=== PATIENT | female | born 1965 | race African-American/Black ===

== ENCOUNTER 2019-02-15 14:07 | Inpatient (IN) | payer MEDICAID ==
[~2019-02-15] VITALS: Ht 175.3 cm; Wt 103.4 kg
[2019-02-15] MEDS ORDERED: MORPHINE SULFATE 4 MG/ML CPJ (NOT FOR IM USE) IV STA (14:38)
[2019-02-15] MEDS ORDERED: SODIUM CHLORIDE 0.9% 1,000 ML IV ONE ×2 (14:38→20:25)
[2019-02-15] MEDS ORDERED: METHYLPREDNISOLONE SOD SUCC 125 MG/2 ML VIAL IV STA (14:38)
[2019-02-15] MEDS ORDERED: ONDANSETRON HCL 4MG/2ML INJ IV STA (14:38)
[2019-02-15] MEDS ORDERED: LEVOFLOXACIN 500MG PREMIX 100 ML IV ONE (14:45)
[2019-02-15] MEDS ORDERED: IPRATROPIUM/ALBUTEROL 0.5-3(2.5)MG/3ML NEB HHN ONE (14:45)
[2019-02-15 15:04] LABS: BG BASE EXCESS -3.1 mmol/L (-2.0-2.0); BG CARBOXYHEMOGLOBIN 1.4 % (0.5-1.5); BG DEOXYHEMOGLOBIN 6.1 % (0.0-5.0); BG HCO3 ACT 20.4 mmol/L (22.0-26.0); BG METHEMOGLOBIN 0.3 % (0.0-1.5); BG OXYGEN SATURATION 93.8 % (92.0-98.5); BG OXYHEMOGLOBIN 92.2 % (94.0-97.0); BG PCO2 31.5 mmHg (35.0-45.0); BG PH 7.429 (7.350-7.450); BG PO2 68.9 mmHg (75.0-100.0); BG SAMPLE SITE RIGHT RADIAL; BG TOTAL HEMOGLOBIN 12.2 g/dL (12.0-18.0); BG VENT MODE ROOM AIR
[2019-02-15 15:16] LABS: BASOPHILS % 0.1 % (0.0-2.0); EOSINOPHILS % 0.6 % (0.0-5.0); HEMATOCRIT. 37.2 % (36.0-48.0); HEMOGLOBIN. 12.3 g/dL (12.0-16.0); LYMPHOCYTES % 9.9 % (20.0-50.0); MEAN CORPUSCULAR HEMOGLOBIN 33.9 pg (28.0-32.0); MEAN PLATELET VOLUME 9.2 fl (7.4-10.4); NEUTROPHILS % 86.4 % (40.0-76.0); PLATELET 230 x1000/uL (130-400); RED BLOOD CELL COUNT 3.61 mill/uL (4.2-5.4); RED CELL DISTRIBUTION WIDTH 13.5 % (11.6-14.6)
[2019-02-15 15:20] LABS: CHLORIDE 105 mEq/L (98-107)
[2019-02-15 15:21] LABS: PARTIAL THROMBOPLASTIN TIME 36.6 sec (23.4-31.0); PROTHROMBIN TIME 9.9 sec (9.6-11.0)
[2019-02-15 15:22] LABS: CLARITY URINE CLEAR (CLEAR); COLOR URINE YELLOW (YELLOW); KETONES URINE NEGATIVE (NEGATIVE); LEUKOCYTE ESTERASE URINE NEGATIVE (NEGATIVE); NITRITE URINE NEGATIVE (NEGATIVE); OCCULT BLOOD URINE 1+ (NEGATIVE); PH URINE 5.5 (4.5-8.0); PROTEIN URINE 1+ (NEGATIVE); SPECIFIC GRAVITY URINE 1.025 (1.005-1.030); UROBILINOGEN URINE 0.2 E.U./dL (0.2-1.0)
[2019-02-15 15:24] LABS: ETHANOL BLOOD < 10 mg/dL
[2019-02-15 15:33] LABS: *BARBITURATES SCREEN URINE NEGATIVE (NEGATIVE); *BENZODIAZEPINES SCREEN URINE NEGATIVE (NEGATIVE); *COCAINE SCREEN URINE PRESUMTIVE POSITIVE (NEGATIVE)
[2019-02-15 15:34] LABS: CANNABINOID URINE SCREEN PRESUMTIVE POSITIVE (NEGATIVE); METHADONE URINE SCREEN NEGATIVE (NEGATIVE); OPIATES URINE SCREEN NEGATIVE (NEGATIVE); PHENCYCLIDINE URINE SCREEN NEGATIVE (NEGATIVE)
[2019-02-15 15:35] LABS: *AMPHETAMINES SCREEN URINE NEGATIVE (NEGATIVE)
[2019-02-15] MEDS ORDERED: ONDANSETRON HCL 4MG/2ML INJ IV ONE (17:30)
[2019-02-15] MEDS ORDERED: MORPHINE SULFATE 4 MG/ML CPJ (NOT FOR IM USE) IV ONE (17:30)
[2019-02-15] MEDS ORDERED: KETOROLAC 30MG/ML VIAL IV ONE (17:30)
[2019-02-16] MEDS ORDERED: KETOROLAC 15MG/ML VIAL IV NR (05:00)
[2019-02-16] MEDS ORDERED: GUAIFENESIN-DM 200MG-20MG/10ML UDC PO PRN (07:45)
[2019-02-16] MEDS ORDERED: IPRATROPIUM/ALBUTEROL 0.5-3(2.5)MG/3ML NEB HHN PRN (07:45)
[2019-02-16] MEDS ORDERED: ONDANSETRON HCL 4MG/2ML INJ IV PRN (07:45)
[2019-02-16 08:59] LABS: HEMATOCRIT. 34.4 % (36.0-48.0); HEMOGLOBIN. 11.2 g/dL (12.0-16.0); LYMPHOCYTES % 8.5 % (20.0-50.0); MEAN CORPUSCULAR HEMOGLOBIN 33.8 pg (28.0-32.0); MEAN CORPUSCULAR VOLUME 103.8 fL (81.0-99.0); MEAN PLATELET VOLUME 9.4 fl (7.4-10.4); MONOCYTES % 3.9 % (2.0-8.0); NEUTROPHILS % 87.6 % (40.0-76.0); PLATELET 212 x1000/uL (130-400); RED BLOOD CELL COUNT 3.31 mill/uL (4.2-5.4); RED CELL DISTRIBUTION WIDTH 13.5 % (11.6-14.6)
[2019-02-16 09:01] LABS: CHLORIDE 112 mEq/L (98-107)
[2019-02-16] MEDS ORDERED: VANCOMYCIN 1 G PREMIX 200 ML IV ONE (10:00)
[2019-02-16] MEDS ORDERED: PIPERACILLIN/TAZ 3.375G PREMIX 50 ML IV ONE (10:00)
[2019-02-16] MEDS ORDERED: METHYLPREDNISOLONE SOD SUCC 40 MG/ML VIAL IV SCH (10:00)
[2019-02-16 12:00] VITALS: BP 102/57
[2019-02-16 12:55] VITALS: BP 127/68
[2019-02-16] MEDS ORDERED: LEVOFLOXACIN 500MG PREMIX 100 ML IV SCH (15:00)
[2019-02-16 16:00] VITALS: BP 103/59
[2019-02-16] MEDS ORDERED: ATRIPLA (16:09)
[2019-02-16] MEDS ORDERED: ATRIPLA PO (16:15)
[2019-02-16] MEDS ORDERED: NON FORMULARY PATIENT HOME MED XX SCH (16:30)
[2019-02-16] MEDS: PIPERACILLIN/TAZ 3.375G PREMIX 50 ML IV SCH (17:03)
[2019-02-16] MEDS: ACETAMINOPHEN 325MG TABLET PO PRN (17:32)
[2019-02-16 17:37] LABS: HEPATITIS B SURFACE ANTIGEN NEGATIVE
[2019-02-16 18:07] LABS: HEPATITIS A AB IGM NEGATIVE (NEGATIVE)
[2019-02-16] MEDS: LINEZOLID 600 MG PREMIX 300 ML IV SCH (18:45)
[2019-02-16 20:00] VITALS: BP 126/75
[2019-02-16] MEDS: GUAIFENESIN 600MG ER TABLET PO SCH (21:00)
[2019-02-16] MEDS ORDERED: VANCOMYCIN 1250MG in DEXTROSE 5% WATER 250ML IV SCH (21:00)
[2019-02-16] MEDS: HYDROCODONE/ACETAMINOPHEN 5/325MG TABLET PO PRN (21:16)
[2019-02-16] MEDS: IPRATROPIUM/ALBUTEROL 0.5-3(2.5)MG/3ML NEB HHN SCH (21:42)
[2019-02-17] VITALS: BP 119/62
[2019-02-17] MEDS: PIPERACILLIN/TAZ 3.375G PREMIX 50 ML IV SCH ×3 (00:14→13:03)
[2019-02-17] MEDS: IPRATROPIUM/ALBUTEROL 0.5-3(2.5)MG/3ML NEB HHN SCH ×4 (00:48→20:40)
[2019-02-17 04:00] VITALS: BP 96/62
[2019-02-17] MEDS: HYDROCODONE/ACETAMINOPHEN 5/325MG TABLET PO PRN ×3 (04:24→17:20)
[2019-02-17] MEDS: LINEZOLID 600 MG PREMIX 300 ML IV SCH (05:26)
[2019-02-17 06:27] LABS: CHLORIDE 114 mEq/L (98-107)
[2019-02-17 06:28] LABS: BASOPHILS % 0.3 % (0.0-2.0); EOSINOPHILS % 2.4 % (0.0-5.0); HEMATOCRIT. 31.1 % (36.0-48.0); HEMOGLOBIN. 10.3 g/dL (12.0-16.0); LYMPHOCYTES % 27.8 % (20.0-50.0); MEAN CORPUSCULAR HEMOGLOBIN 34.1 pg (28.0-32.0); MEAN CORPUSCULAR VOLUME 102.5 fL (81.0-99.0); MEAN PLATELET VOLUME 9.4 fl (7.4-10.4); MONOCYTES % 6.7 % (2.0-8.0); NEUTROPHILS % 62.8 % (40.0-76.0); PLATELET 197 x1000/uL (130-400); RED BLOOD CELL COUNT 3.03 mill/uL (4.2-5.4); RED CELL DISTRIBUTION WIDTH 13.5 % (11.6-14.6)
[2019-02-17] MEDS: GUAIFENESIN 600MG ER TABLET PO SCH ×2 (08:47→21:08)
[2019-02-17 08:56] VITALS: BP 100/50
[2019-02-17 09:07] LABS: ABSOLUTE LYMPHOCYTES 1.6 x10E3/uL (0.7-3.1); ABSOLUTE MONOCYTES 0.7 x10E3/uL (0.1-0.9); ABSOLUTE NEUTROPHILS 15.3 x10E3/uL (1.4-7.0); BASOPHILS 0 % (Not Estab.); HEMATOCRIT 33.9 % (34.0-46.6); HEMOGLOBIN 11.1 g/dL (11.1-15.9); IMMATURE GRANULOCYTES 0 % (Not Estab.); LYMPHOCYTES 9 % (Not Estab.); MEAN CORPUSCULAR HEMOGLOBIN 33.2 pg (26.6-33.0); MEAN CORPUSCULAR HGB CONC. 32.7 g/dL (31.5-35.7); MEAN CORPUSCULAR VOLUME 102 fL (79-97); MONOCYTES 4 % (Not Estab.); NEUTROPHILS 87 % (Not Estab.); PLATELETS 246 x10E3/uL (150-450); RBC 3.34 x10E6/uL (3.77-5.28); RED CELL DISTRIBUTION WIDTH 13.7 % (12.3-15.4); WBC 17.6 x10E3/uL (3.4-10.8)
[2019-02-17 11:42] VITALS: BP 103/48
[2019-02-17 13:15] LABS: % CD 3 POS. LYMPHOCYTES 78.5 % (57.5-86.2); % CD 4 POS. LYMPHOCYTES 35.4 % (30.8-58.5); % CD 8 POS. LYMPH 44.6 % (12.0-35.5); ABSOLUTE CD 3 1256 /uL (622-2402); ABSOLUTE CD 4 HELPER 566 /uL (359-1519); ABSOLUTE CD 8 SUPPRESSOR 714 /uL (109-897); CD4/CD8 RATIO 0.79 (0.92-3.72)
[2019-02-17 16:20] VITALS: BP 109/61
[2019-02-17] MEDS: CEFTRIAXONE 2 G in DEXTROSE 5% WATER 50 ML IV SCH (17:21)
[2019-02-17] MEDS: ACETAMINOPHEN 325MG TABLET PO PRN (18:54)
[2019-02-17 19:43] VITALS: BP 109/62
[2019-02-18] VITALS: BP 105/65
[2019-02-18] MEDS: HYDROCODONE/ACETAMINOPHEN 5/325MG TABLET PO PRN ×5 (01:42→21:46)
[2019-02-18] MEDS: IPRATROPIUM/ALBUTEROL 0.5-3(2.5)MG/3ML NEB HHN SCH ×4 (01:50→20:59)
[2019-02-18] MEDS: ACETAMINOPHEN 325MG TABLET PO PRN (03:40)
[2019-02-18 03:45] VITALS: BP 119/74
[2019-02-18 06:45] LABS: BASOPHILS % 0.2 % (0.0-2.0); EOSINOPHILS % 2.9 % (0.0-5.0); HEMATOCRIT. 32.4 % (36.0-48.0); HEMOGLOBIN. 10.8 g/dL (12.0-16.0); LYMPHOCYTES % 20.4 % (20.0-50.0); MEAN CORPUSCULAR HEMOGLOBIN 33.9 pg (28.0-32.0); MEAN CORPUSCULAR VOLUME 102.3 fL (81.0-99.0); MEAN PLATELET VOLUME 9.2 fl (7.4-10.4); MONOCYTES % 5.9 % (2.0-8.0); NEUTROPHILS % 70.6 % (40.0-76.0); PLATELET 223 x1000/uL (130-400); RED BLOOD CELL COUNT 3.17 mill/uL (4.2-5.4); RED CELL DISTRIBUTION WIDTH 13.6 % (11.6-14.6)
[2019-02-18 06:47] LABS: CHLORIDE 107 mEq/L (98-107)
[2019-02-18 08:00] VITALS: BP 118/70
[2019-02-18] MEDS: GUAIFENESIN 600MG ER TABLET PO SCH ×2 (08:44→20:11)
[2019-02-18 12:00] VITALS: BP 93/61
[2019-02-18 16:00] VITALS: BP 109/67
[2019-02-18] MEDS: CEFTRIAXONE 2 G in DEXTROSE 5% WATER 50 ML IV SCH (17:17)
[2019-02-18 20:00] VITALS: BP 102/66
[2019-02-18] MEDS ORDERED: LACTULOSE 20G/30ML UDC PO PRN (22:15)
[2019-02-19] VITALS: BP 113/73
[2019-02-19] MEDS: IPRATROPIUM/ALBUTEROL 0.5-3(2.5)MG/3ML NEB HHN SCH ×3 (02:17→13:28)
[2019-02-19 04:00] VITALS: BP 102/69
[2019-02-19] MEDS: HYDROCODONE/ACETAMINOPHEN 5/325MG TABLET PO PRN ×3 (06:14→23:10)
[2019-02-19 08:00] VITALS: BP 127/91
[2019-02-19] MEDS: GUAIFENESIN 600MG ER TABLET PO SCH ×2 (09:30→21:26)
[2019-02-19 12:00] VITALS: BP_SYST 124; BP_SYST 139; BP_DIAS 61; BP_DIAS 80
[2019-02-19 16:00] VITALS: BP 116/78
[2019-02-19] MEDS: ACETAMINOPHEN 325MG TABLET PO PRN ×2 (16:37→21:27)
[2019-02-19] MEDS: CEFTRIAXONE 2 G in DEXTROSE 5% WATER 50 ML IV SCH (17:36)
[2019-02-19 20:00] VITALS: BP 131/88
[2019-02-20 00:04] VITALS: BP 101/61
[2019-02-20] MEDS: IPRATROPIUM/ALBUTEROL 0.5-3(2.5)MG/3ML NEB HHN SCH ×3 (02:55→13:35)
[2019-02-20 04:00] VITALS: BP 97/61
[2019-02-20] MEDS: HYDROCODONE/ACETAMINOPHEN 5/325MG TABLET PO PRN (06:24)
[2019-02-20] MEDS: GUAIFENESIN 600MG ER TABLET PO SCH (09:48)
[2019-02-20] MEDS: ACETAMINOPHEN 325MG TABLET PO PRN (09:52)
[2019-02-20 12:06] VITALS: BP 127/68
== END 2019-02-20 13:30 | disposition home or self-care (01) | DRG 890 ==
LOC: ER 14:07 → CANBEDREQ 16:48 → 7WST 18:53 → CANRESERV 02-16 07:04 → ENRESERV 02-16 07:04 → EDBEDREQ 02-16 08:01 → ENRESERV 02-16 10:28
PROVIDERS: ADMIT Internal Medicine; ATTEND Internal Medicine
DX: A40.9 Streptococcal sepsis, unspecified (principal); B20 Human immunodeficiency virus [HIV] disease; J96.00 Acute respiratory failure, unspecified whether with hypoxia or hypercapnia; J18.9 Pneumonia, unspecified organism; E44.1 Mild protein-calorie malnutrition; F32.9 Major depressive disorder, single episode, unspecified; F17.210 Nicotine dependence, cigarettes, uncomplicated; E66.9 Obesity, unspecified; J44.9 Chronic obstructive pulmonary disease, unspecified; R04.2 Hemoptysis; M94.0 Chondrocostal junction syndrome [Tietze]; F12.10 Cannabis abuse, uncomplicated; F14.10 Cocaine abuse, uncomplicated; Z85.71 Personal history of Hodgkin lymphoma; Z71.3 Dietary counseling and surveillance; Z71.6 Tobacco abuse counseling; Z68.33 Body mass index [BMI] 33.0-33.9, adult
CPT/HCPCS: 36415; 36600; 71045; 71250; 80048; 80305; 80320; 82375; 82805; 83605; 83880; 84484; 86359; 86360; 86705; 86709; 86803; 87077; 87116; 87186; 87340; 93005; 93306; 93970; 94640; 96374; 99285; J0696; J1885; J1956; J2020; J2270; J2405; J2543; J2930; J3370; J7030; J7050; J7060; J7620; G0480